=== PATIENT | female | born 1985 | race Caucasian/White ===

== ENCOUNTER 2017-06-04 09:13 | Emergency (ER) | payer MEDICARE ==
[~2017-06-04] VITALS: Ht 162.6 cm; Wt 54.4 kg
--- NOTE | 2017-06-04 09:17 | NUR ---
patient was [id number] from home for back pain that radiates to abdominal area for the last 4 hrs. Pt sts she has a sh/o kidney stone diagnosed yesterday at [facility]. noted with facial grimacing, appears anxious. nad. on cont cardiac monitoring. pending er md evaluation
[2017-06-04] MEDS ORDERED: IV NS 0.9% 1,000 ML BAG IV ONE ×2 (10:00→10:30)
--- NOTE | 2017-06-04 10:07 | NUR ---
appears comfortable at this time. pt said she has no pain right now.
[2017-06-04] MEDS ORDERED: ONDANSETRON 4 MG TAB.RAPDIS PO ONE (10:30)
[2017-06-04] MEDS ORDERED: KETOROLAC TROMETHAMINE INJ 30 MG/ML VIAL IV ONE (10:30)
[2017-06-04] MEDS ORDERED: TAMSULOSIN 0.4 MG CAP.SR.24H PO ONE (10:30)
[2017-06-04] MEDS ORDERED: ONDANSETRON 4 MG TAB.RAPDIS ONE ×2 (10:43→10:51)
[2017-06-04] MEDS ORDERED: TAMSULOSIN 0.4 MG CAP.SR.24H ONE ×2 (10:43→10:49)
[2017-06-04] MEDS ORDERED: ONDANSETRON HCL/PF 4 MG/2 ML VIAL ONE (10:49)
[2017-06-04] MEDS ORDERED: KETOROLAC TROMETHAMINE INJ 30 MG/ML VIAL ONE (10:49)
--- NOTE | 2017-06-04 10:52 | NUR ---
Pt soes not want to take toradol at this time. she said she is pain free and will ask for it once pain comes back.
--- NOTE | 2017-06-04 11:40 | NUR ---
Patient discharged to home in stable condition. Written and verbal after care instructions given. Patient verbalizes understanding of instruction.IV removed. Catheter intact and site benign. Pressure and 4x4 applied to site. No bleeding noted.
[2017-06-04 11:41] VITALS: BP 120/66
== END 2017-06-04 11:43 | disposition home or self-care (01) ==
LOC: ER 09:15
DX: N20.2 Calculus of kidney with calculus of ureter (principal)
CPT/HCPCS: 96360; 99284; A4606; Q0162; J1885; J2405; Z7610

== ENCOUNTER 2018-03-25 17:13 | Emergency (ER) | payer MEDICARE ==
[~2018-03-25] VITALS: Ht 160 cm; Wt 55.8 kg
--- NOTE | 2018-03-25 18:10 | NUR ---
PT IS UNABLE TO GIVE URINE SAMPLE AT THIS TIME.
--- NOTE | 2018-03-25 18:15 | NUR ---
IV ACCESS STARTED. BLOOD DRAWN FOR LABS. AT BS FOR EVAL.
--- NOTE | 2018-03-25 18:25 | NUR ---
PATIENT TO ED C/O VOMITING, DIARRHEA SINCE TODAY. PATIENT RECEIVED AWAKE AND ALERT. APPEARS IN NO ACUTE DISTRESS, RESPIRATION EVEN AND UNLABORED. SKIN IS WARM TO TOUCH AND NON DIAPHORETIC, PATIENT IS AFEBRILE. VSS
[2018-03-25] MEDS ORDERED: ONDANSETRON HCL/PF 4 MG/2 ML VIAL ONE (18:28)
[2018-03-25] MEDS ORDERED: ONDANSETRON HCL/PF 4 MG/2 ML VIAL IVP ONE (18:30)
[2018-03-25] MEDS ORDERED: IV NS 0.9% 1,000 ML BAG IV ONE ×2 (18:30→19:30)
[2018-03-25 18:36] LABS: BASOPHILS # (AUTO) 0.2 /CMM (0.0-0.2); BASOPHILS % (AUTO) 1.6 % (0.0-2.0); HEMATOCRIT 35 % (33-45); HEMOGLOBIN 12.1 g/dL (11.5-14.8); LYMPHOCYTES # (AUTO) 0.3 /CMM (0.8-4.8); LYMPHOCYTES % (AUTO) 2.1 % (20.0-44.0); MEAN CORPUSCULAR HEMOGLOBIN 30 PG (26.0-33.0); MEAN CORPUSCULAR HGB CONC 34 g/dl (31.0-36.0); MEAN CORPUSCULAR VOLUME 88 fL (82-100); MONOCYTES # (AUTO) 0.2 /CMM (0.1-1.30); MONOCYTES % (AUTO) 1.4 % (2.0-12.0); NEUTROPHILS # (AUTO) 11.8 /CMM (1.8-8.9); NEUTROPHILS % (AUTO) 94.9 % (43.0-81.0); PLATELET COUNT (AUTO) 221 /CMM (150-450); RDW COEFFICIENT OF VARIATION 11.8 (11.5-15.0); RED BLOOD CELL COUNT(AUTO) 3.99 MIL/uL (4.0-5.2); WHITE BLOOD COUNT (AUTO) 12.5 K/uL (4.3-11.0)
[2018-03-25 18:48] LABS: CALCIUM, SERUM 8.4 mg/dL (8.5-10.1); POTASSIUM 3.1 mmol/L (3.5-5.1)
[2018-03-25 19:03] LABS: ALBUMIN 3.7 g/dL (3.4-5.0); BILIRUBIN,DIRECT 0.1 mg/dL (0.0-0.2); CREATININE 0.9 mg/dL (0.6-1.3)
--- NOTE | 2018-03-25 19:18 | NUR ---
Patient is resting comfortably in bed with eyes closed. Easily aroused. VSS. NAD. WILL CONTINUE MONITOR.
[2018-03-25] MEDS ORDERED: POTASSIUM CHLORIDE 20 MEQ TAB.PRT.SR PO ONE ×2 (19:29→19:30)
[2018-03-25 20:23] LABS: APPEARANCE,URINE Clear (CLEAR); BILIRUBIN,URINE Negative (NEGATIVE); BLOOD, URINE Negative Ery/uL (NEGATIVE); COLOR,URINE Yellow (YELLOW); KETONES,URINE 40 (NEGATIVE); LEUKOCYTE ESTERASE ,URINE Negative (NEGATIVE); NITRITE, URINE Negative (NEGATIVE); PH,URINE 5.5 (5.0-8.0); PROTEIN,URINE Negative (NEGATIVE); UGLUCOSE Negative (NEGATIVE); UROBILINOGEN,URINE 0.2 EU/dL (0.2)
[2018-03-25 20:31] LABS: BACTERIA,URINE Rare /HPF (None Seen); RBC,URINE NONE SEEN /HPF (0-2); SQUAMOUS EPITHELIAL CELL,UR Few /HPF (None Seen); WBC,URINE NONE SEEN /HPF (0-3)
--- NOTE | 2018-03-25 21:51 | NUR ---
Patient discharged to home in stable condition. Written and verbal after care instructions given. Patient verbalizes understanding of instruction. IV removed. Catheter intact and site benign. Pressure and 4x4 applied to site. No bleeding noted. AMBULATED WITH STABLE GAIN. INSTRUCTED NOT TO OPERATE OR DRIVE HEAVY MACHINERY
[2018-03-25 21:53] VITALS: BP 102/71
== END 2018-03-25 21:55 | disposition home or self-care (01) ==
LOC: ER 17:17
DX: R19.7 Diarrhea, unspecified (principal); E86.0 Dehydration; E87.6 Hypokalemia; Z87.442 Personal history of urinary calculi
CPT/HCPCS: 36415; 76705; 80048; 80076; 81001; 83690; 84703; 85025; 96361; 96374; 99285; A4606; J2405; J7030 ×2; 81000-TC; Z7610